=== PATIENT | female | born 1980 | race Caucasian/White ===

== ENCOUNTER 2017-04-14 13:22 | Outpatient (CLI) | payer MEDICAID ==
[2017-04-14 14:59] LABS: ADD MAN DIFF? NO
[2017-04-14 15:02] LABS: BASOPHILS % 0.2 % (0.0-2.0); EOSINOPHILS # 0.1 10^3/ul (0.0-0.5); EOSINOPHILS % 0.9 % (0.0-7.0); HEMATOCRIT 38.3 % (37.0-47.0); LYMPHOCYTES # 1.8 10^3/ul (0.8-2.9); LYMPHOCYTES % 19.9 % (15.0-51.0); MEAN CORPUSCULAR HEMOGLOBIN 29.8 pg (29.0-33.0); MEAN CORPUSCULAR HGB CONC 33.9 g/dl (32.0-37.0); MEAN CORPUSCULAR VOLUME 87.8 fl (82.0-101.0); MONOCYTE # 0.6 10^3/ul (0.3-0.9); MONOCYTES % 6.1 % (0.0-11.0); NEUTROPHIL # 6.6 10^3/ul (1.6-7.5); NEUTROPHILS % 72.2 % (39.0-77.0); PLATELET COUNT 222 10^3/UL (140-415); RED BLOOD COUNT 4.36 10^6/ul (4.20-5.40); RED CELL DISTRIBUTION WIDTH 13.8 % (11.5-14.5)
[2017-04-14 15:02] LABS: WHITE BLOOD COUNT 9.2 10^3/ul (4.8-10.8)
[2017-04-14 15:17] LABS: INR 0.86; PROTIME 11.8 Sec (11.9-14.9); PT RATIO 0.9
[2017-04-14 15:18] LABS: PARTIAL THROMBOPLASTIN TIME 26.9 Sec (25.0-35.0)
[2017-04-14 15:23] LABS: ADD UMIC YES; UR ASCORBIC ACID 20 mg/dL (NEGATIVE); UR BACTERIA FEW /HPF (NONE SEEN); UR BILIRUBIN (Dip) NEGATIVE (NEGATIVE); UR BLOOD (Dip) NEGATIVE (NEGATIVE); UR CLARITY CLOUDY (CLEAR); UR COLOR YELLOW (YELLOW); UR GLUCOSE (Dip) NEGATIVE (NEGATIVE); UR KETONES (Dip) 1+ mg/dL (NEGATIVE); UR LEUKOCYTE ESTERASE (Dip) 3+ Leu/ul (NEGATIVE); UR MUCUS MANY /HPF (NONE SEEN); UR NITRITE (Dip) NEGATIVE (NEGATIVE); UR NONSQUAMOUS EPITHELIAL CELL 1 /HPF (NONE SEEN); UR RBC 7 /HPF (0-5); UR SPECIFIC GRAVITY (Dip) 1.023 (1.003-1.030); UR SQUAMOUS EPITHELIAL CELL MODERATE /HPF (FEW); UR TOTAL PROTEIN (Dip) NEGATIVE (NEGATIVE); UR UROBILINOGEN (Dip) NEGATIVE (NEGATIVE); UR WBC 13 /HPF (0-5)
[2017-04-14 15:24] LABS: ALANINE AMINOTRANSFERASE 27 IU/L (13-69); ALBUMIN 3.7 g/dl (3.3-4.9); ALBUMIN/GLOBULIN RATIO 1.12; ALKALINE PHOSPHATASE 148 IU/L (42-121); ANION GAP 12 (8-16); ASPARTATE AMINO TRANSFERASE 17 IU/L (15-46); BILIRUBIN,INDIRECT 0.1 mg/dl (0-1.1); BILIRUBIN,TOTAL 0.1 mg/dl (0.2-1.3); BLOOD UREA NITROGEN 7 mg/dl (7-20); CALCIUM 9.1 mg/dl (8.4-10.2); CARBON DIOXIDE 23 mmol/L (21-31); CHLORIDE 107 mmol/L (97-110); CREATININE 0.59 mg/dl (0.44-1.00); GLUCOSE 81 mg/dl (70-220); POTASSIUM 4.4 mmol/L (3.5-5.1); SODIUM 138 mmol/L (135-144); URIC ACID 4.8 mg/dl (3.1-7.9)
== END 2017-04-14 16:29 | disposition home or self-care (01) ==
LOC: OBT 13:22 → L-D 13:22 → OBT 16:29
DX: O23.43 Unspecified infection of urinary tract in pregnancy, third trimester (principal); O09.523 Supervision of elderly multigravida, third trimester; Z3A.38 38 weeks gestation of pregnancy
CPT/HCPCS: 76818; 80053; 81001; 84560; 85025; 85384; 85610; 85730

== ENCOUNTER 2017-05-10 16:23 | Inpatient (IN) | payer MEDICAID ==
[~2017-05-10 16:23] MED LIST: CEFAZOLIN 1 GM INJ; METHYLERGONOVINE 0.2 MG INJ
[2017-05-10] MEDS ORDERED: OXYTOCIN 30 UNITS/LR 500 ML IV ×4 (17:30→23:00)
[2017-05-10] MEDS ORDERED: MISOPROSTOL 200 MCG TAB PR ×2 (17:30→23:00)
[2017-05-10] MEDS ORDERED: METHYLERGONOVINE 0.2 MG INJ IM ×2 (17:30→23:00)
[2017-05-10] MEDS ORDERED: LIDOCAINE 1% (MPF) 30 ML INJ INJ (17:30)
[2017-05-10] MEDS ORDERED: CARBOPROST 250 MCG INJ IM ×2 (17:30→23:00)
[2017-05-10] MEDS: LACTATED RINGER'S 1,000 ML IV (19:45)
[2017-05-10 19:58] LABS: ADD MAN DIFF? NO
[2017-05-10 20:00] LABS: WHITE BLOOD COUNT 8.9 10^3/ul (4.8-10.8)
[2017-05-10 20:00] LABS: BASOPHILS % 0.2 % (0.0-2.0); EOSINOPHILS # 0.1 10^3/ul (0.0-0.5); EOSINOPHILS % 0.9 % (0.0-7.0); HEMATOCRIT 40.2 % (37.0-47.0); HEMOGLOBIN 13.6 g/dl (12.0-16.0); LYMPHOCYTES # 1.5 10^3/ul (0.8-2.9); LYMPHOCYTES % 16.3 % (15.0-51.0); MEAN CORPUSCULAR HEMOGLOBIN 29.7 pg (29.0-33.0); MEAN CORPUSCULAR HGB CONC 33.8 g/dl (32.0-37.0); MEAN CORPUSCULAR VOLUME 87.8 fl (82.0-101.0); MEAN PLATELET VOLUME 11.1 fl (7.4-10.4); MONOCYTE # 0.5 10^3/ul (0.3-0.9); MONOCYTES % 6.1 % (0.0-11.0); NEUTROPHIL # 6.7 10^3/ul (1.6-7.5); PLATELET COUNT 220 10^3/UL (140-415); RED BLOOD COUNT 4.58 10^6/ul (4.20-5.40); RED CELL DISTRIBUTION WIDTH 14.2 % (11.5-14.5)
[2017-05-10 20:23] LABS: INR 0.85; PARTIAL THROMBOPLASTIN TIME 28.5 Sec (25.0-35.0); PROTIME 11.7 Sec (11.9-14.9); PT RATIO 0.9
[2017-05-10] MEDS ORDERED: BUTORPHANOL 2 MG INJ IV (20:30)
[2017-05-10] MEDS ORDERED: MISOPROSTOL 25 MCG CAPSULE PO (20:30)
[2017-05-10 20:37] LABS: ALANINE AMINOTRANSFERASE 28 IU/L (13-69); ALBUMIN 3.6 g/dl (3.3-4.9); ALBUMIN/GLOBULIN RATIO 1.05; ALKALINE PHOSPHATASE 184 IU/L (42-121); ANION GAP 17 (8-16); ASPARTATE AMINO TRANSFERASE 23 IU/L (15-46); BILIRUBIN,INDIRECT 0.1 mg/dl (0-1.1); BILIRUBIN,TOTAL 0.1 mg/dl (0.2-1.3); BLOOD UREA NITROGEN 7 mg/dl (7-20); CALCIUM 9.4 mg/dl (8.4-10.2); CARBON DIOXIDE 21 mmol/L (21-31); CHLORIDE 106 mmol/L (97-110); CREATININE 0.51 mg/dl (0.44-1.00); GLUCOSE 76 mg/dl (70-220); POTASSIUM 3.7 mmol/L (3.5-5.1); SODIUM 140 mmol/L (135-144)
[2017-05-10 20:41] LABS: ADD UMIC YES; UR ASCORBIC ACID 40 mg/dL (NEGATIVE); UR BACTERIA FEW /HPF (NONE SEEN); UR BILIRUBIN (Dip) NEGATIVE (NEGATIVE); UR BLOOD (Dip) NEGATIVE (NEGATIVE); UR CLARITY SLIGHTLY CLOUDY (CLEAR); UR COLOR YELLOW (YELLOW); UR GLUCOSE (Dip) NEGATIVE (NEGATIVE); UR KETONES (Dip) 1+ mg/dL (NEGATIVE); UR LEUKOCYTE ESTERASE (Dip) 3+ Leu/ul (NEGATIVE); UR MUCUS MODERATE /HPF (NONE SEEN); UR NITRITE (Dip) NEGATIVE (NEGATIVE); UR RBC 10 /HPF (0-5); UR SPECIFIC GRAVITY (Dip) 1.018 (1.003-1.030); UR SQUAMOUS EPITHELIAL CELL MODERATE /HPF (FEW); UR TOTAL PROTEIN (Dip) NEGATIVE (NEGATIVE); UR UROBILINOGEN (Dip) NEGATIVE (NEGATIVE); UR WBC 4 /HPF (0-5)
[2017-05-10 21:03] LABS: URIC ACID 6.5 mg/dl (3.1-7.9)
[2017-05-10] MEDS ORDERED: ONDANSETRON 4 MG INJ (21:07)
[2017-05-10] MEDS ORDERED: METOCLOPRAMIDE 10 MG INJ (21:07)
[2017-05-10] MEDS ORDERED: FAMOTIDINE 20 MG INJ (21:08)
[2017-05-10] MEDS ORDERED: DEXAMETHASONE 4 MG/ML 1 ML INJ (21:08)
[2017-05-10] MEDS ORDERED: OXYTOCIN 10 UNIT INJ ×2 (21:11→22:26)
[2017-05-10] MEDS ORDERED: HYDROmorphONE 2 MG/ML SYG (21:16)
[2017-05-10] MEDS ORDERED: MIDAZOLAM 1 MG/ML 2 ML INJ (21:16)
[2017-05-10 21:54] LABS: CBV Base Excess -11.3 mmol/L; CBV Oxygen Sat 73.6 mmHG; CBV Total Hemglobin 20.5 g/dl; Cord Blood Venous pO2 40.7 mmHG (15.0-45.0); Fraction OxyHgb Cord Venous 72.4 %; MODE ROOM AIR; MetHgb Cord Venous 0.6 %; Sample Type Blood venous; Site CORD
[2017-05-10 21:55] LABS: Arterial Cord Blood pCO2 120.4 mmHG (25-50); CBA Base Excess -16.4 mmol/L; CBA Oxygen Sat 18.7 mmHG; CBA Total Hemglobin 19.9 g/dl; Cord Blood Arterial pO2 18.2 mmHG (15.0-45.0); Fraction OxyHgb Cord Arterial 18.3 %; MODE ROOM AIR; Site CORD
[2017-05-10] MEDS ORDERED: FENTAnyl 50 MCG/ML VIAL (22:04)
[2017-05-10 22:15] LABS: AMPHETAMINE/METHAMPHETAMINE Negative (NEGATIVE); BARBITURATES Negative (NEGATIVE); BENZODIAZEPINES Negative (NEGATIVE); CANNABINOIDS Negative (NEGATIVE); COCAINE Negative (NEGATIVE); OPIATES Negative (NEGATIVE)
[2017-05-10] MEDS ORDERED: PROPOFOL 40 ML (22:26)
[2017-05-10] MEDS ORDERED: LIDOCAINE 2% (SDV) 5 ML INJ (22:26)
[2017-05-10] MEDS ORDERED: SUCCINYLCHOLINE CHLORIDE 100 MG/5 ML SYG IV (22:26)
[2017-05-10] MEDS ORDERED: METOCLOPRAMIDE 10 MG INJ IV (22:30)
[2017-05-10] MEDS ORDERED: LABETALOL HCL 20MG INJ IV (22:30)
[2017-05-10] MEDS ORDERED: ONDANSETRON 4 MG INJ IV (22:30)
[2017-05-10] MEDS ORDERED: hydrALAzine 20 MG INJ IV (22:30)
[2017-05-10] MEDS ORDERED: KETOROLAC 30 MG INJ IV (22:30)
[2017-05-10] MEDS ORDERED: HYDROmorphONE (0.2 MG/ML) 10ML SYG IV ×2 (22:30)
[2017-05-10] MEDS: OXYTOCIN 30 UNITS/LR 500 ML IV (22:43)
[2017-05-10] MEDS ORDERED: DEXTROSE 5%-LR 1,000 ML IV (22:56)
[2017-05-10] MEDS ORDERED: METHYLERGONOVINE 0.2 MG TAB PO (23:00)
[2017-05-10] MEDS: OXYCODONE/ACETAMINOPHEN (5/325) TAB PO (23:00)
[2017-05-10] MEDS ORDERED: OXYCODONE/ACETAMINOPHEN (5/325) TAB PO (23:00)
[2017-05-11] MEDS: LACTATED RINGER'S 500 ML IV ×6 (01:21→21:21)
[2017-05-11] MEDS ORDERED: NALOXONE (0.4 MG/ML) INJ IV (02:00)
[2017-05-11] MEDS: OXYTOCIN 30 UNITS/LR 500 ML IV (02:08)
[2017-05-11] MEDS ORDERED: DIPHENHYDRAMINE 25 MG CAP PO (02:30)
[2017-05-11] MEDS ORDERED: ONDANSETRON 4 MG INJ IV (02:30)
[2017-05-11] MEDS: HYDROmorphONE 0.2 MG/ML PCA IV ×2 (02:59→18:52)
[2017-05-11] MEDS: CEFAZOLIN 1 GM/50 ML (PMX) 50 ML IV ×4 (05:54→18:00)
[2017-05-11] MEDS: IBUPROFEN 800 MG TAB PO ×3 (06:00→22:46)
[2017-05-11 08:25] LABS: ADD MAN DIFF? NO
[2017-05-11 08:37] LABS: WHITE BLOOD COUNT 12.9 10^3/ul (4.8-10.8)
[2017-05-11 08:37] LABS: BASOPHILS % 0.1 % (0.0-2.0); HEMATOCRIT 34.8 % (37.0-47.0); HEMOGLOBIN 11.8 g/dl (12.0-16.0); LYMPHOCYTES # 1.4 10^3/ul (0.8-2.9); LYMPHOCYTES % 10.6 % (15.0-51.0); MEAN CORPUSCULAR HEMOGLOBIN 29.7 pg (29.0-33.0); MEAN CORPUSCULAR HGB CONC 33.9 g/dl (32.0-37.0); MEAN CORPUSCULAR VOLUME 87.7 fl (82.0-101.0); MEAN PLATELET VOLUME 11.3 fl (7.4-10.4); MONOCYTE # 0.8 10^3/ul (0.3-0.9); MONOCYTES % 6.1 % (0.0-11.0); NEUTROPHIL # 10.7 10^3/ul (1.6-7.5); NEUTROPHILS % 82.7 % (39.0-77.0); PLATELET COUNT 222 10^3/UL (140-415); RED BLOOD COUNT 3.97 10^6/ul (4.20-5.40); RED CELL DISTRIBUTION WIDTH 13.9 % (11.5-14.5)
[2017-05-11] MEDS: OXYCODONE/ACETAMINOPHEN (5/325) TAB PO ×3 (09:25→23:12)
[2017-05-11] MEDS: SENNA/DOCUSATE NA (8.6MG/50MG) TAB PO ×2 (09:27→20:41)
[2017-05-11 15:51] LABS: RAPID PLASMA REAGIN NONREACTIVE (NR)
[2017-05-11] MEDS: LANOLIN 7 GM TUBE TOP (18:00)
[2017-05-12] MEDS: CEFAZOLIN 1 GM/50 ML (PMX) 50 ML IV ×2 (00:04→06:08)
[2017-05-12] MEDS: LACTATED RINGER'S 500 ML IV ×6 (01:21→21:21)
[2017-05-12] MEDS: IBUPROFEN 800 MG TAB PO ×3 (06:08→22:11)
[2017-05-12] MEDS: OXYCODONE/ACETAMINOPHEN (5/325) TAB PO ×3 (07:03→23:04)
[2017-05-12] MEDS: SENNA/DOCUSATE NA (8.6MG/50MG) TAB PO ×2 (09:51→20:44)
[2017-05-12] MEDS: INFLUENZA VIRUS VACCINE 0.5 ML SYG IM* (17:36)
[2017-05-13] MEDS: IBUPROFEN 800 MG TAB PO (05:28)
[2017-05-13] MEDS: OXYCODONE/ACETAMINOPHEN (5/325) TAB PO (06:43)
[2017-05-13] MEDS ORDERED: MEASLES,MUMPS,RUBELLA VACCINE INJ SC* (09:00)
[2017-05-13] MEDS: SENNA/DOCUSATE NA (8.6MG/50MG) TAB PO (09:53)
[2017-05-13] MEDS ORDERED: INFLUENZA VIRUS VACCINE 0.5 ML SYG IM* (12:00)
[2017-05-13] MEDS: DIPHTH/TET/ACEL PERTUSS (ADULT) 0.5 ML VIAL IM* (13:13)
== END 2017-05-13 13:25 | disposition home or self-care (01) | DRG 765 ==
LOC: PP1 05-11 03:13 → L-D 16:23
PROC: 10D00Z1 Extraction of Products of Conception, Low, Open Approach (ICD-10-PCS; principal; 2017-05-10 20:45)
DX: O48.0 Post-term pregnancy (principal); O76 Abnormality in fetal heart rate and rhythm complicating labor and delivery; O41.03X0 Oligohydramnios, third trimester, not applicable or unspecified; O69.81X0 Labor and delivery complicated by cord around neck, without compression, not applicable or unspecified; Z37.0 Single live birth; Z3A.41 41 weeks gestation of pregnancy
CPT/HCPCS: 36415; 36600; 74018; 76815; 80053; 80307; 81001; 82803; 84560; 85025; 85610; 85730; 86592; 86850; 86900; 86901; 88307; 90715; 94760; 99464